=== PATIENT | female | born 1950 | race Caucasian/White ===

== ENCOUNTER → 2021-01-10 | Outpatient (CLI) | payer OTHER | LOC: KOH-I 13:00 | DX: R91.8 Other nonspecific abnormal finding of lung field (principal); I71.4 Abdominal aortic aneurysm, without rupture; Z90.49 Acquired absence of other specified parts of digestive tract | CPT/HCPCS: 71250 ==

== ENCOUNTER → 2022-02-16 | Outpatient (CLI) | payer OTHER | LOC: RT 12:52 | DX: Z01.810 Encounter for preprocedural cardiovascular examination (principal) | CPT/HCPCS: 93005 ==